=== PATIENT | female | born 1940 | race African-American/Black ===

== ENCOUNTER 2017-03-20 05:24 | Day surgery (SDC) | payer MEDICARE, OTHER ==
[2017-03-20] VITALS (11 sets, daily range): BP systolic 146–189; BP diastolic 70–87
[~2017-03-20] VITALS: Ht 162.6 cm; Wt 78.5 kg
[~2017-03-20 05:24] MED LIST: ASPIRIN81 MG ORAL; BYSTOLIC10 MG ORAL; CARBAMAZEPINE300 MG ORAL; CLONIDINE1 EAC1 TD; EXFORGE 10-3201 EACH ORAL; EXFORGE HCT 101 EAC1 ORAL; GLIPIZIDE5 MG ORAL; JANUVIA50 MG ORAL; KEPPRA1000 MG ORAL; NAMENDA10 MG ORAL
[2017-03-20] MEDS ORDERED: Avastin 10mg Inj IVITRE ONE (06:00)
[2017-03-20] MEDS: Gatifloxacin Opth Solution 0.5% LEFT EYE SCH ×3 (06:00→06:10)
--- NOTE | 2017-03-20 06:08 | Pre-Procedure Note/Attestation ---
Pre-Procedure Note/Attestation Complete Prior to Procedure Planned Procedure: left Procedure Narrative: PPV, membrane peel, endolaser, Avastin injection L eye Indications for Procedure Pre-Operative Diagnosis: Diabetic traction detachment L eye Attestation I attest that I discussed the nature of the procedure; its benefits; risks and complications; and alternatives (and the risks and benefits of such alternatives ), prior to the procedure, with the patient (or the patient's legal public utilities sales representative). I attest that, if there was a reasonable possibility of needing a blood transfusion, the patient (or the patient's legal public utilities sales representative) was given the [facility] standardized written summary, pursuant to the [place] Blood Safety Act ([place] Health and Safety Code # 1645, as amended). I attest that I re-evaluated the patient just prior to the surgery and that there has been no change in the patient's H&P, except as documented below: ANETA SNOWDEN March 20, 2017 06:08
[2017-03-20] MEDS ORDERED: BSS 500ml btl ONE ×2 (06:30→10:49)
[2017-03-20] MEDS ORDERED: Tetracaine 0.5% Opth Soln ONE (06:30)
[2017-03-20] MEDS ORDERED: Dexamethasone 4mg/ml vial ONE (06:30)
[2017-03-20] MEDS ORDERED: Maxitrol Opth Oint 3.5gm ONE (06:30)
[2017-03-20] MEDS ORDERED: Bupivacaine 0.75% 30ml vial INJ ONE (06:31)
[2017-03-20] MEDS ORDERED: Lidocaine 2% MPF 5ml Vial INJ ONE (06:31)
[2017-03-20] MEDS ORDERED: BSS 15ml BTL ONE (06:31)
[2017-03-20] MEDS ORDERED: Sodium Hyaluronate 10 mg/ml 0.85ml ONE (06:31)
[2017-03-20] MEDS ORDERED: EPINEPHrine 1mg/1ml Amp ONE ×2 (06:31→10:49)
[2017-03-20] MEDS ORDERED: Povidone-Iodine 5% opth solution ONE (06:31)
[2017-03-20] MEDS ORDERED: DiphenhydrAMINE 50mg/ml Inj ONE (06:32)
[2017-03-20] MEDS ORDERED: Phenylephrine 2.5% Op Soln ONE (06:59)
[2017-03-20] MEDS ORDERED: Gatifloxacin Opth Solution 0.5% ONE (06:59)
[2017-03-20] MEDS ORDERED: Flurbiprofen 0.03% Opth Sol 2.5ml ONE (06:59)
[2017-03-20] MEDS ORDERED: Cyclopentolate 1% Opth Sol ONE (06:59)
[2017-03-20] MEDS ORDERED: Pred Forte 1% Opth Susp 1ml LEFT EYE ONE (07:00)
[2017-03-20 07:13] LABS: ANION GAP 15 (5-15); CALCIUM 9.1 mg/dL (8.6-10.2); CARBON DIOXIDE 20 mEQ/L (20-30); CHLORIDE 103 mEQ/L (98-107); CREATININE 2.7 mg/dL (0.5-0.9); HEMOLYSIS 24; MEAN CORPUSCULAR HEMOGLOBIN 30.3 PG (27.0-31.0); MEAN CORPUSCULAR HGB CONC 32.4 G/DL (32.0-36.0); MEAN CORPUSCULAR VOLUME 93 FL (80-99); MEAN PLATELET VOLUME 14.7 FL (6.5-10.1); PLATELET COUNT 76 K/UL (150-450); POTASSIUM 4.6 mEQ/L (3.4-4.9); RED BLOOD COUNT 3.92 M/UL (4.20-5.40); RED CELL DISTRIBUTION WIDTH 12.6 % (11.6-14.8); SODIUM 138 mEQ/L (135-145); WHITE BLOOD COUNT 6.7 K/UL (4.8-10.8)
[2017-03-20 07:39] LABS: BAND NEUTROPHILS % (MANUAL) 0 % (0-8); BASOPHILS % (MANUAL) 0 % (0-2); EOSINOPHILS % (MANUAL) 6 % (0-3); LYMPHOCYTES % (MANUAL) 24 % (20-45); NEUTROPHILS % (MANUAL) 60 % (45-75); PLATELET ESTIMATE DECREASED; TOTAL CELLS COUNTED 100
[2017-03-20 07:40] LABS: ANISOCYTOSIS 1+; PLATELET MORPHOLOGY NORMAL
[2017-03-20 07:41] LABS: PLATELET CLUMPS 1+
[2017-03-20] MEDS ORDERED: LR 1000ml 1,000 ML IVLG SCH (07:54)
--- NOTE | 2017-03-20 07:54 | Anethesia Preoperative Eval ---
Anesthesia Pre-op PMH/ROS General Date of Evaluation: March 20, 2017 Anesthesiologist: Gabriel ASA Score: ASA 4 Mallampati Score Class I : Soft palate, uvula, fauces, pillars visible Class II: Soft palate, uvula, fauces visible Class III: Soft palate, base of uvula visible Class IV: Only hard plate visible Mallampati Classification: Class III Surgeon: Mariana Diagnosis: LEft vitreous hemorrhage Surgical Procedure: Left eye vitrectomy Anesthesia History: none Family History: no anesthesia problems Allergies: Coded Allergies: Cultivated Oat Pollen (Verified Allergy, Mild, 03/20/17) Medications: see eMAR Past Medical History Cardiovascular: Reports: HTN, other - HLD, Denies: CAD, MS, arrhythmia, valve dz Pulmonary: Denies: COPD, NIKUNJ, asthma, other Gastrointestinal/Genitourinary: Denies: CRI, ESRD, GERD, other Neurologic/Psychiatric: Reports: CVA, dementia, depression/anxiety, other - 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 Exam Physician Exam see chart Constitutional: NAD Cardiovascular: RRR Respiratory: CTA Airway Exam Mallampati Score: Class III MO: limited Teeth: missing, intact Anesthesia Pre-op A/P Labs Hematology Test 03/20/17 06:50 White Blood Count 6.7 K/UL (4.8-10.8) Red Blood Count 3.92 M/UL (4.20-5.40) L Hemoglobin 11.9 G/DL (12.0-16.0) L Hematocrit 36.6 % (37.0-47.0) L Mean Corpuscular Volume 93 FL (80-99) Mean Corpuscular Hemoglobin 30.3 PG (27.0-31.0) Mean Corpuscular Hemoglobin Concent 32.4 G/DL (32.0-36.0) Red Cell Distribution Width 12.6 % (11.6-14.8) Platelet Count 76 K/UL (150-450) L Mean Platelet Volume 14.7 FL (6.5-10.1) H Neutrophils (%) (Auto) % (45.0-75.0) Lymphocytes (%) (Auto) % (20.0-45.0) Monocytes (%) (Auto) % (1.0-10.0) Eosinophils (%) (Auto) % (0.0-3.0) Basophils (%) (Auto) % (0.0-2.0) Differential Total Cells Counted 100 Neutrophils % (Manual) 60 % (45-75) Lymphocytes % (Manual) 24 % (20-45) Monocytes % (Manual) 10 % (1-10) Eosinophils % (Manual) 6 % (0-3) H Basophils % (Manual) 0 % (0-2) Band Neutrophils 0 % (0-8) Platelet Estimate Decreased L Platelet Morphology Normal Clumped Platelets 1+ Anisocytosis 1+ Chemistry Test 03/20/17 06:50 Sodium Level 138 mEQ/L (135-145) Potassium Level 4.6 mEQ/L (3.4-4.9) Chloride Level 103 mEQ/L (98-107) Carbon Dioxide Level 20 mEQ/L (20-30) Anion Gap 15 (5-15) Blood Urea Nitrogen 63 mg/dL (7-23) H Creatinine 2.7 mg/dL (0.5-0.9) H Estimat Glomerular Filtration Rate mL/min (>60) Glucose Level 126 mg/dL (74-106) H Calcium Level 9.1 mg/dL (8.6-10.2) Studies Pre-op Studies: EKG - SB with first degree AVB Risk Assessment & Plan Assessment: ASA IV Plan: MAC Status Change Before Surgery: No Pre-Antibiotics Drug: N/A VAHID RIVAS M.D. March 20, 2017 07:54
[2017-03-20] MEDS ORDERED: Midazolam 2mg/2ml Inj IVP PRN (08:00)
[2017-03-20] MEDS ORDERED: DiphenhydrAMINE 50mg/ml Inj IVP PRN (08:00)
[2017-03-20] MEDS: Cyclopentolate 1% Opth Sol LEFT EYE SCH ×3 (08:18→08:38)
[2017-03-20] MEDS: Phenylephrine 2.5% Op Soln LEFT EYE SCH ×3 (08:19→08:38)
[2017-03-20] MEDS: Flurbiprofen 0.03% Opth Sol 2.5ml LEFT EYE SCH ×3 (08:19→08:38)
[2017-03-20] MEDS ORDERED: TRADJENTA5 MG PO (08:52)
[2017-03-20] MEDS ORDERED: HYDROCHLOROTHIA25 MG ORAL (08:52)
[2017-03-20] MEDS ORDERED: VITAMIN D1000 UNI1 ORAL (08:52)
--- NOTE | 2017-03-20 09:46 | Pre-op HX & Phy Repo 2 SIG ---
DATE OF SURGERY: 03/20/2017. PREOPERATIVE DIAGNOSIS: Vitreous traction associated with diabetic retinopathy, left eye. BRIEF NOTE: The patient is a very nice 77-year-old lady with a long history of proliferative diabetic retinopathy. She underwent a vitrectomy in the right eye in 2014 for a vitreous hemorrhage and traction, which was successful. We have been monitoring and following traction on the left eye, which has progressed in a table-top fashion. She is admitted for vitrectomy on that side. PAST OCULAR HISTORY: Also remarkable for cataract surgery done in the right eye in 2013. She has a cataract on the left. PAST MEDICAL HISTORY: Remarkable for diabetes for 13 years as well as hypertension and heart disease for about the same amount of time. MEDICATIONS: She is currently on clonidine, carbamazepine, Januvia, Namenda, Bystolic, and aspirin. ALLERGIES: She has no known allergies. PHYSICAL EXAMINATION: EYES: Best vision at admission was 20/80, -2 in the right eye and 20/60 in the left with pressures of 17 and 16. The anterior segment on the right showed a posterior chamber lens well positioned. The left showed a 3+ nuclear cataract. Fundus examination of the right eye showed a cup of about 0.45 with mild pallor. There was an old proliferative diabetic retinopathy that appeared to be well lasered. Left fundus showed proliferative retinopathy with a table-top area of traction extending from the nerve along both major arcades and going from superior to inferior with traction pulling on the temporal retina. The macula was slightly elevated at its temporal most edge. The periphery showed extensive laser. There was sedation. General physical examination will be done by Dr. Wray. ASSESSMENT: Severe proliferative diabetic retinopathy with traction, left eye. PLAN: The plan is to perform a pars plana vitrectomy with extensive membrane dissection, Endolaser, and possible gas injection on the left. The risks and benefits of surgery have been gone over with the patient including potential for infection, hemorrhage, worsening of the cataract, and loss of the eye. The risk of anesthesia was discussed. The patient understands and consents to the surgery, which will be performed on tomorrow morning. Dionte Peña M.D. DR: NAKITA JOB#: [id number] CC:
[2017-03-20] MEDS ORDERED: LR 1000ml ONE (10:30)
[2017-03-20] MEDS ORDERED: Propofol 10mg/ml 20ml IV ONE (10:30)
[2017-03-20] MEDS ORDERED: Sterile Water Irrig 1000ml IRRIG ONE (10:30)
[2017-03-20] MEDS ORDERED: Lidocaine 1% MPF 10mg/ml 5ml ONE (10:30)
[2017-03-20] MEDS ORDERED: NS Irrig 1000ml ONE (10:30)
--- NOTE | 2017-03-20 12:09 | Immediate Post-Op Evaluation ---
Immediate Post-Op Evalulation Immediate Post-Op Evalulation Procedure: Left eye vitrectomy Date of Evaluation: March 20, 2017 Time of Evaluation: 12:11 IV Fluids: 300 Blood Products: 0 Estimated Blood Loss: 0 Urinary Output: 0 Blood Pressure Systolic: 189 Blood Pressure Diastolic: 87 Pulse Rate: 57 Respiratory Rate: 16 O2 Sat by Pulse Oximetry: 100 Temperature (Fahrenheit): 97.5 Pain Score (1-10): 0 Nausea: No Vomiting: No Complications 0 Patient Status: awake, reacts, patent, none Hydration Status: adequate Drug: N/A VAHID RIVAS M.D. March 20, 2017 12:09
[2017-03-20] MEDS ORDERED: Kenalog-10 5ml Inj ONE (12:15)
--- NOTE | 2017-03-20 13:03 | Pre-op HX & Phy Repo 2 SIG ---
DATE OF ADMISSION: 03/20/2017 PRESURGICAL INTERNAL MEDICINE HISTORY AND PHYSICAL REASON FOR EVALUATION: I was asked by Dr. Dionte Peña to see this 77-year-old female who is going for elective surgery on the left eye. The patient has vitreous hemorrhage in left eye. Please see full History and Physical by Dr. Dionte Peña. The patient was evaluated. Chart was reviewed. PAST MEDICAL HISTORY/REVIEW OF SYSTEMS: Remarkable for hypertension, type 2 diabetes, history of stroke with right hemiplegia approximately four years ago, degenerative joint disease of knees, and fracture of the left ankle many years ago. History of seizures. Denies history of heart attack, chest pain, and palpitation. No respiratory problem. Denies history of GI bleeding and heartburn. No history of renal failure or thyroid problem. No anemia. PAST SURGICAL HISTORY: Right eye surgery four years ago. CURRENT MEDICATIONS: Include hydrochlorothiazide 25 mg, clonidine 0.2 mg patch, baby aspirin, amlodipine, losartan, daily, Claritin, and vitamin D. ALLERGIES: Allergic to pollen, hay fever. SOCIAL HISTORY: The patient denies history of smoke or alcohol habit. No street drugs. . FAMILY HISTORY: Mother of old age. Father had hypertension. PHYSICAL EXAMINATION: GENERAL: Saw at the bedside VITAL SIGNS: Blood pressure 189/89, temperature 98.7 degrees, heart rate 56, and O2 saturation 99% on room air. SKIN: Warm, dry, and clear. No rashes. No diaphoresis. LYMPHATICS: Lymph nodes not enlarged. HEENT: Head, normocephalic. Ears, clear. Eyes, full description per Dr. Dionte Peña. Mouth, clear and moist. No teeth. No dentures. NECK: Supple. No jugular vein distention. Carotid artery +2. Trachea midline. CHEST: No deformity or asymmetry. LUNGS: Clear. No rales or rhonchi. HEART: Sinus rhythm. Bradycardia. No ectopy. No murmur. No S3 or S4. ABDOMEN: Soft and benign. Liver and spleen not enlarged. No rebound. No palpable mass. EXTREMITIES: Degenerative joint disease of knee. Scar on the left ankle post fracture. No varicose vein. No calf tenderness. GENITOURINARY: No dysuria or CVA tenderness. NERVOUS SYSTEM: Post CVA and history of seizures. She has been treated. The patient ambulates with walker. LABORATORY AND DIAGNOSTIC DATA: Electrocardiogram, sinus bradycardia at 57 per minute, normal, first-degree AV block. The patient did not drink or eat from 7 p.m. yesterday. Her blood sugar of 129. The rest of the laboratory is pending. IMPRESSION: 1. Vitreous hemorrhage, left eye. 2. Hypertension, poor control. 3. Diabetes mellitus type 2. 4. History of cerebrovascular accident with right hemiplegia. 5. Degenerative joint disease of knee. PLAN: Pars plana vitrectomy, endolaser membrane peel, left eye per Dr. Dionte Peña. CONCLUSION: The patient's blood pressure is elevated. She did not take medications this morning. EKG shows sinus bradycardia. The patient is asymptomatic. She did not eat or drink from yesterday evening. The patient's condition was optimized for surgery. Thank you very much, Dr. Peña, for the privilege to participate in the presurgical care of this interesting patient. Grabiel Wray M.D. DR: Nicholas JOB#: [id number] CC:
--- NOTE | 2017-03-20 14:34 | 48 Hour Post Anesthesia Eval ---
Post Anesthesia Evaluation Procedure: Left eye vitrectomy Date of Evaluation: March 20, 2017 Time of Evaluation: 13:30 Blood Pressure Systolic: 156 0: 73 Pulse Rate: 54 Respiratory Rate: 20 Temperature (Fahrenheit): 98 O2 Sat by Pulse Oximetry: 99 Airway: patent Nausea: No Vomiting: No Pain Intensity: 0 Hydration Status: adequate Cardiopulmonary Status: at baseline Mental Status/LOC: patient returned to baseline Post-Anesthesia Complications: 0 Follow-up care needed: ready to discharge VAHID RIVAS M.D. March 20, 2017 14:34
[2017-03-20] MEDS ORDERED: Norco 5mg/325mg tab ORAL PRN (16:01)
--- NOTE | 2017-03-21 12:32 | Operative Note - Dictated ---
DATE OF OPERATION: 03/21/2017 PREOPERATIVE DIAGNOSIS: 1. Vitreous hemorrhage with traction, left eye. PROCEDURES PERFORMED: 1. Pars plana vitrectomy. 2. Membrane dissection. 3. Endolaser. 4. Kenalog injection, left eye. 5. Avastin injection, left eye. SURGEON: Dionte Peña M.D. CLOTH PRINTING UTILITY WORKER: None. ANESTHESIA: Local sedation. ANESTHESIOLOGIST: Dr. Britton. JUSTIFICATION FOR SURGERY: This 77-year-old lady with a long history of diabetes and diabetic retinopathy developed progressive traction in the left eye with a large subhyaloid bleed. She was admitted for repair. BRIEF NOTE: The patient was brought to the operative room, placed on operating room table in supine position. After a time-out was performed and agreed upon by the staff. She was subjected to retrobulbar and Van Lint injection in standard way. When injection taken effect, she was prepped and draped in normal manner. A lid speculum was inserted into the left eye. Using a 23-gauge trocar system cannulas were placed all except infranasal quadrant. Infusion secured inferotemporally. Vitrectomy was begun posterior to the lens taking care to avoid contact. A central core vitrectomy was done followed by peripheral vitrectomy leaving a small vitreous skirt. The posterior hyaloid was noted to have several attachments around the arcades and nasally with blood beneath. Peripheral hyaloid was dissected free. Using combination of the membrane pick, intraocular scissors, and vitreous cutter, the tissue was meticulously dissected away and the blood evacuated from the surface of the retina. Endo cautery was used to treat the active small bleeders. No retinal breaks were seen. The endolaser was then brought to the eye and a power of 0.3 raman, duration 0.2 seconds, a total of 1237 lesions were applied in the far periphery and areas of light treatment and also surrounding areas were traction was dissected. The macula was let clean. Kenalog had been used to aid in visualization of the vitreous. The two superior cannulas were removed and Avastin 1.25 mg was injected through the infusion line. Single suture was placed across the infusion site and superonasally. The remaining site was noted to be self-sealing. Subconjunctival Decadron and gentamicin were then injected and Maxitrol and atropine ointments were instilled. The eye was patched and shielded and the patient taken to recovery in excellent condition. No complications. Dionte Peña M.D. DR: Jerrod JOB#: [id number] CC: Dionte Peña M.D.; Fax#: [phone]
== END 2017-03-20 14:45 | disposition home or self-care (01) ==
LOC: SUR 05:24
DX: H43.12 Vitreous hemorrhage, left eye (principal); H43.822 Vitreomacular adhesion, left eye; E11.3592 Type 2 diabetes mellitus with proliferative diabetic retinopathy without macular edema, left eye; Z79.84 Long term (current) use of oral hypoglycemic drugs; I25.10 Atherosclerotic heart disease of native coronary artery without angina pectoris; I10 Essential (primary) hypertension; R00.1 Bradycardia, unspecified; I44.0 Atrioventricular block, first degree; D64.9 Anemia, unspecified; I69.951 Hemiplegia and hemiparesis following unspecified cerebrovascular disease affecting right dominant side; M17.0 Bilateral primary osteoarthritis of knee; E78.5 Hyperlipidemia, unspecified; F03.90 Unspecified dementia, unspecified severity, without behavioral disturbance, psychotic disturbance, mood disturbance, and anxiety; E66.9 Obesity, unspecified; F32.9 Major depressive disorder, single episode, unspecified; F41.9 Anxiety disorder, unspecified; Z86.69 Personal history of other diseases of the nervous system and sense organs; Z79.82 Long term (current) use of aspirin
CPT/HCPCS: 36415; 67042; 80048; 82962; 85007; 85025; J0171; J1100; J1200; J2704; J3301; J3470; J3490; J7120; J9035; 94003; 94150

== ENCOUNTER 2019-07-15 09:33 | Day surgery (SDC) | payer MEDICARE, OTHER ==
[2019-07-15] VITALS (8 sets, daily range): BP systolic 137–156; BP diastolic 71–87
[~2019-07-15] VITALS: Ht 162.6 cm; Wt 76.2 kg
--- NOTE | 2019-07-15 06:23 | Pre-Procedure Note/Attestation ---
Pre-Procedure Note/Attestation Complete Prior to Procedure Planned Procedure: left Procedure Narrative: Removal of cataract and placement of intraocular lens, left eye Indications for Procedure Pre-Operative Diagnosis: Cataract, combined, left eye Attestation I attest that I discussed the nature of the procedure; its benefits; risks and complications; and alternatives (and the risks and benefits of such alternatives ), prior to the procedure, with the patient (or the patient's legal sales representative printing). I attest that, if there was a reasonable possibility of needing a blood transfusion, the patient (or the patient's legal sales representative printing) was given the [facility] standardized written summary, pursuant to the [place] Blood Safety Act ([place] Health and Safety Code # 1645, as amended). I attest that I re-evaluated the patient just prior to the surgery and that there has been no change in the patient's H&P, except as documented below: Viraj Woodward MD Jul 15, 2019 06:23
[~2019-07-15 09:33] MED LIST changes: +HYDROCHLOROTHIA25 MG ORAL; +TRADJENTA5 MG PO; +VITAMIN D1000 UNI1 ORAL
[2019-07-15] MEDS ORDERED: Cyclopentolate 1% Opth Sol 2ml ONE (10:01)
[2019-07-15] MEDS ORDERED: Flurbiprofen 0.03% Opth Sol 2.5ml ONE (10:02)
[2019-07-15] MEDS ORDERED: Akten 3.5% 1ml Btl ONE (10:02)
[2019-07-15] MEDS ORDERED: Tobradex Opth Susp 2.5ml ONE (10:03)
[2019-07-15] MEDS ORDERED: Vigamox Opth Soln 3ml ONE (10:03)
[2019-07-15] MEDS ORDERED: Phenylephrine 10% Opth Soln 5ml ONE (10:03)
[2019-07-15] MEDS ORDERED: Tropicamide 1% Opth 15ml Soln ONE (10:03)
[2019-07-15] MEDS: Tropicamide 1% Opth 15ml Soln LEFT EYE SCH ×3 (10:17→10:58)
[2019-07-15] MEDS: Vigamox Opth Soln 3ml LEFT EYE SCH ×3 (10:17→10:57)
[2019-07-15] MEDS: Cyclopentolate 1% Opth Sol 2ml LEFT EYE SCH ×3 (10:17→10:58)
[2019-07-15] MEDS: Akten 3.5% 1ml Btl LEFT EYE SCH ×3 (10:17→10:57)
[2019-07-15] MEDS: Phenylephrine 10% Opth Soln 5ml LEFT EYE SCH ×3 (10:18→10:57)
[2019-07-15] MEDS: Flurbiprofen 0.03% Opth Sol 2.5ml LEFT EYE SCH ×3 (10:18→10:57)
[2019-07-15] MEDS: Tobradex Opth Susp 2.5ml LEFT EYE SCH ×3 (10:18→10:57)
[2019-07-15] MEDS ORDERED: LOSARTAN POTASS25 MG ORAL (10:53)
[2019-07-15] MEDS ORDERED: DIOVAN80 MG ORAL (10:55)
[2019-07-15] MEDS ORDERED: Lidocaine 4% Amp ONE (10:57)
[2019-07-15] MEDS ORDERED: EPINEPHrine 1mg/1ml Amp ONE (10:57)
[2019-07-15] MEDS ORDERED: Pred Forte 1% Opth Susp 1ml ONE (10:58)
[2019-07-15] MEDS ORDERED: Carbachol 0.01% Op Soln 1.5ml vial ONE (10:58)
[2019-07-15] MEDS ORDERED: Polysporin Opth Oint 3.5gm ONE (10:58)
[2019-07-15] MEDS ORDERED: BSS 500ml btl ONE (10:58)
[2019-07-15] MEDS ORDERED: Dexamethasone 4mg/ml vial ONE (10:58)
[2019-07-15] MEDS ORDERED: Lidocaine 1% MPF 10mg/ml 5ml ONE ×3 (10:58→13:09)
[2019-07-15] MEDS ORDERED: Fluorescein Strips ONE (10:58)
[2019-07-15] MEDS ORDERED: Sodium Hyaluronate 10 mg/ml 0.85ml ONE (10:59)
[2019-07-15] MEDS ORDERED: Acetylcholine Injection (OR) ONE (10:59)
[2019-07-15] MEDS ORDERED: BSS 15ml BTL ONE (10:59)
[2019-07-15] MEDS ORDERED: Bupivacaine 0.75% 30ml vial INJ ONE (10:59)
[2019-07-15] MEDS ORDERED: Tetracaine 0.5% Opth 4ml Soln ONE (10:59)
[2019-07-15] MEDS ORDERED: Povidone-Iodine 5% opth solution ONE (10:59)
--- NOTE | 2019-07-15 12:29 | Anethesia Preoperative Eval ---
Anesthesia Pre-op PMH/ROS General Date of Evaluation: Jul 15, 2019 Anesthesiologist: Gabriel ASA Score: ASA 3 Mallampati Score Class I : Soft palate, uvula, fauces, pillars visible Class II: Soft palate, uvula, fauces visible Class III: Soft palate, base of uvula visible Class IV: Only hard plate visible Mallampati Classification: Class III Surgeon: lara Diagnosis: left cataract Surgical Procedure: left catarat extraction with IOL Anesthesia History: none Family History: no anesthesia problems Allergies: Coded Allergies: Cultivated Oat Pollen (Verified Allergy, Mild, 03/20/17) Medications: see eMAR Patient NPO?: Yes NPO Date: Jul 14, 2019 NPO Time: 22:00 Past Medical History Cardiovascular: Reports: HTN, other - HLD; Denies: CAD, [place], valve dz, arrhythmia Pulmonary: Denies: asthma, COPD, NIKUNJ, other Gastrointestinal/Genitourinary: Reports: CRI; Denies: GERD, ESRD, other Neurologic/Psychiatric: Reports: CVA - with residual right sided weeaknesss, other - 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 Exam Physician Exam Last Vital Signs Date Time Temp Pulse Resp B/P (MAP) Pulse Ox O2 Delivery O2 Flow Rate FiO2 07/15/19 10:47 Room Air 07/15/19 10:31 97.0 66 18 155/87 98 Constitutional: NAD Cardiovascular: RRR Respiratory: CTA Airway Exam Mallampati Score: Class III MO: limited ROM: limited Anesthesia Pre-op A/P Labs see chart Studies Pre-op Studies: EKG - sr with 1st degree av block Risk Assessment & Plan Assessment: ASA III Plan: MAC Status Change Before Surgery: No Pre-Antibiotics Drug: N/A Given Within 1 Hr of Incision: Yes Meredith Malagon MD Jul 15, 2019 12:29
[2019-07-15] MEDS ORDERED: NS Irrig 1000ml ONE (13:00)
[2019-07-15] MEDS ORDERED: Sterile Water Irrig 1000ml IRRIG ONE (13:00)
[2019-07-15] MEDS ORDERED: LR 1000ml ONE (13:00)
[2019-07-15] MEDS ORDERED: LR 1000ml 1,000 ML IVLG SCH (13:05)
[2019-07-15] MEDS ORDERED: Metoclopramide 10mg/2ml Inj IVP PRN (13:15)
[2019-07-15] MEDS ORDERED: DiphenhydrAMINE 50mg/ml Inj IVP PRN (13:15)
--- NOTE | 2019-07-15 13:44 | Discharge Instructions ---
Discharge Instructions Discharge Instructions Follow Up Orders Wear shield at all times except to place eye drops Continue preoperative eye drops Wear shield at all times For Congestive Heart Failure Reminder Report to your physician any weight gain of 5 pounds or more in one week. Viraj Woodward MD Jul 15, 2019 13:44
--- NOTE | 2019-07-15 13:46 | Immediate Post-Op Evaluation ---
Immediate Post-Op Evalulation Immediate Post-Op Evalulation Procedure: Left cataract extraction with IOL Date of Evaluation: Jul 15, 2019 Time of Evaluation: 13:47 IV Fluids: 300 Blood Products: 0 Estimated Blood Loss: 0 Urinary Output: 0 Blood Pressure Systolic: 152 Blood Pressure Diastolic: 100 Pulse Rate: 71 Respiratory Rate: 16 O2 Sat by Pulse Oximetry: 99 Temperature (Fahrenheit): 97 Pain Score (1-10): 0 Nausea: No Vomiting: No Complications 0 Patient Status: awake, reacts, patent, none Hydration Status: adequate Drug: N/A Meredith Malagon MD Jul 15, 2019 13:46
--- NOTE | 2019-07-15 13:47 | Brief Operative Note ---
Immediate Post Operative Note Operative Note Pre-op Diagnosis: Cataract, combined, left eye Procedure: Phaco PC IOL OS Use of vision blue for capsular staining Post-op Diagnosis: same as pre-op Surgeon: Mack Woodward MD Card Grader: none Anesthesiologist: Dr Britton Anesthesia: local, MAC Specimen: none Complications: none Fluids: see chart Implant(s) used?: Yes - mora [id number] 18.5 Viraj Woodward MD Jul 15, 2019 13:47
--- NOTE | 2019-07-15 13:47 | 48 Hour Post Anesthesia Eval ---
Post Anesthesia Evaluation Procedure: Left cataract extraction with IOL Date of Evaluation: Jul 15, 2019 Airway: patent Nausea: No Vomiting: No Pain Intensity: 0 Hydration Status: adequate Cardiopulmonary Status: at baseline Mental Status/LOC: patient returned to baseline Post-Anesthesia Complications: 0 Follow-up care needed: ready to discharge Meredith Malagon MD Jul 15, 2019 13:47
--- NOTE | 2019-07-15 17:45 | Operative Note - Dictated ---
DATE OF OPERATION: 07/15/2019 SURGEON: Viraj Woodward M.D. WAFER PRODUCTION WORKER SURGEON: None. ANESTHESIOLOGIST: Meredith Britton M.D. ANESTHESIA: Local/standby/monitored anesthesia care. PREOPERATIVE DIAGNOSIS: Dense combined cataract, left eye (+3 to 4 nuclear sclerosis and +3 cortical cataract and +2 posterior subcapsular cataract). POSTOPERATIVE DIAGNOSIS: Dense combined cataract, left eye (+3 to 4 nuclear sclerosis and +3 cortical cataract and +2 posterior subcapsular cataract). PROCEDURE: 1. Phacoemulsification of cataract, left eye. 2. Placement of posterior chamber intraocular lens, left eye. 3. Use of VisionBlue for capsular staining, left eye. 4. The posterior chamber intraocular lens that was placed was an Harrison [id number], power 18.5. SPECIMENS: None. COMPLICATIONS: None. INDICATIONS FOR SURGERY: The patient has had the painless progressive decrease in visual acuity in the left eye secondary to cataract. The patient also has proliferative diabetic retinopathy for which she sees Dr. Dionte Peña. The patient understands the risk of surgery including infection, bleeding, need for further surgery, loss of vision, no improvement of vision, loss of the eye, loss of life, glaucoma, retinal detachment, worsening of diabetic retinopathy, and understands these risks and elects to proceed with surgery. FINDINGS: The patient had a +3 to 4 nuclear sclerotic cataract as well as a +3 cortical cataract and +2 posterior subcapsular cataract. OPERATIVE NOTE: After informed consent was obtained, the patient was brought into the operating room, and placed in supine position. Cardiac and respiratory monitors were attached. A time-out was performed and all criteria were met and everyone in the room agreed. The left eye was then draped and prepped in sterile manner for ocular surgery. A lid speculum was placed in the eye. A 1% lidocaine preservative-free was injected at the approximate 2:30 limbus. A conjunctiva peritomy from approximately 2 o'clock to 3 o'clock was made and dissected posteriorly. Hemostasis was maintained with bipolar cautery. A 2.6 mm limbal incision was made centered approximately 2:30 and dissected anteriorly. Paracentesis was made at approximately 5 o'clock and 1% lidocaine preservative-free was injected into the anterior chamber followed by an air bubble. VisionBlue was then injected into the anterior chamber to stain the anterior capsule due to the fact that the red reflex was very dull secondary to the dense cataract. The anterior capsule was then stained and the VisionBlue was irrigated from the anterior chamber. The anterior chamber was then entered using a 2.6 mm keratome through the limbal incision. An anterior capsulorrhexis was then performed. Hydrodissection and hydrodelineation of the lens was then performed. The lens was then phacoemulsified using a divide and conquer four-quadrant technique. Residual cortical material was then aspirated. Healon was injected into the anterior chamber and capsular bag. The lens was taken from its package, placed into the cartridge, and the tip of the cartridge was placed through the limbal incision. Then, the lens was injected into the capsular bag and centered nicely with a [place] hook. Healon was aspirated from the anterior chamber and capsular bag. One 10-0 nylon interrupted suture was then placed through the limbal incision. The knot was rotated and buried. Care was taken during the entire procedure not to touch the endothelium. The wounds were checked and found to be watertight. The lens was identified to have both haptics and the optic in the capsular bag centered in the 3 o'clock and 9 o'clock meridian. The conjunctiva was then closed with forceps cautery. The lid speculum and drapes were removed from the eye and drops of TobraDex and Pred Forte were applied to the eye in addition to moxifloxacin and then Maxitrol ointment. A shield was placed in the eye and the patient left the operating room awake, alert, and in stable condition. Viraj Woodward M.D. DR: ANGELES JOB#: [id number] CC:
== END 2019-07-15 15:25 | disposition home or self-care (01) ==
LOC: SUR 09:33
DX: H25.12 Age-related nuclear cataract, left eye (principal); H25.012 Cortical age-related cataract, left eye; H25.042 Posterior subcapsular polar age-related cataract, left eye; I10 Essential (primary) hypertension; E78.5 Hyperlipidemia, unspecified; I12.9 Hypertensive chronic kidney disease with stage 1 through stage 4 chronic kidney disease, or unspecified chronic kidney disease; E11.22 Type 2 diabetes mellitus with diabetic chronic kidney disease; N18.9 Chronic kidney disease, unspecified; G81.91 Hemiplegia, unspecified affecting right dominant side; I44.0 Atrioventricular block, first degree
CPT/HCPCS: 66984; 82962; J0171; J1100; V2632; 94003; 94150